=== PATIENT | male | born 1985 | race African-American/Black ===

== ENCOUNTER 2016-08-20 12:58 | Emergency (ER) | payer MEDICAID ==
[~2016-08-20] VITALS: Ht 172.7 cm; Wt 101.4 kg
[2016-08-20] MEDS ORDERED: IBUPROFEN 800 MG TABLET PO ONE (13:30)
[2016-08-20] MEDS ORDERED: CefTRIAXone SODIUM 1 GM/VIAL IM ONE (13:30)
[2016-08-20] MEDS ORDERED: LIDOCAINE HCL/PF 1% 2 ML VIAL IM ONE (13:30)
[2016-08-20 13:35] VITALS: BP 124/70
== END 2016-08-20 14:37 | disposition home or self-care (01) ==
LOC: EMS 13:02
DX: K04.7 Periapical abscess without sinus (principal); K02.9 Dental caries, unspecified
CPT/HCPCS: 96372; 99283; J0696; J3490

== ENCOUNTER 2016-09-03 14:03 | Emergency (ER) | payer MEDICAID ==
[~2016-09-03] VITALS: Ht 172.7 cm; Wt 97.3 kg
[2016-09-03 14:05] VITALS: BP 117/72
== END 2016-09-03 14:20 | disposition left against medical advice (07) ==
LOC: EMS 14:04
DX: K08.89 Other specified disorders of teeth and supporting structures (principal); Z53.21 Procedure and treatment not carried out due to patient leaving prior to being seen by health care provider

== ENCOUNTER 2016-09-10 15:44 | Emergency (ER) | payer MEDICAID, OTHER ==
[~2016-09-10] VITALS: Ht 172.7 cm; Wt 96.8 kg
[2016-09-10] MEDS ORDERED: IBUP-1547 PO (15:49)
[2016-09-10] MEDS ORDERED: AMOX250C4 PO (15:49)
[2016-09-10] MEDS ORDERED: IBUPROFEN 600 MG TABLET PO ONE (16:15)
[2016-09-10] MEDS ORDERED: HydrOXYzine PAMOATE 50 MG CAPSULE PO ONE (16:15)
[2016-09-10 16:32] LABS: BASOPHILS % (AUTO) 0.5 % (0.0-2.0); HEMATOCRIT 46.3 % (41-53); HEMOGLOBIN 14.7 g/dL (13.5-17.5); LYMPHOCYTES % (AUTO) 33.1 % (22.0-44.0); MEAN CORPUSCULAR HEMOGLOBIN 28.3 pg (26.0-34.0); MEAN CORPUSCULAR HGB CONC 31.7 G/dL (31.0-37.0); MEAN CORPUSCULAR VOLUME 89 fL (80-100); MONOCYTES # (AUTO) 0.8 K/uL (0.1-1.0); MONOCYTES % (AUTO) 12.8 % (2.0-9.0); NEUTROPHILS # (AUTO) 3.2 K/uL (1.8-7.7); NEUTROPHILS % (AUTO) 52.6 % (40.0-70.0); PLATELET COUNT (AUTO) 244 K/uL (150-450); RED BLOOD CELL COUNT(AUTO) 5.19 MIL/uL (4.50-5.90); RED CELL DISTRIBUTION WIDTH 13.6 % (11.5-14.5); WHITE BLOOD COUNT (AUTO) 6.2 K/uL (4.5-11.0)
[2016-09-10 16:48] LABS: ANION GAP 8 mmol/L (8-16); CARBON DIOXIDE 26 mmol/L (22-29); CHLORIDE 104 mmol/L (98-107); GLOMERULAR FILTR. RATE CALC > 60 mL/min (>60); POTASSIUM 4.4 mmol/L (3.5-5.1); SODIUM SERUM 138 mmol/L (136-145); UREA NITROGEN, BLOOD 17 mg/dL (7-18)
[2016-09-10 17:08] LABS: B-TYPE NATRIURETIC PEPTIDE 12 pg/mL (0-100)
[2016-09-10 17:14] LABS: ALANINE AMINOTRANSFERASE 42 U/L (12-78); ASPARTATE AMINOTRANSFERASE 22 U/L (15-37); BILIRUBIN,TOTAL 0.2 mg/dL (0.1-1.0); CREATINE KINASE MB 1.3 ng/mL (0-5); CREATINE KINASE, TOTAL 331 U/L (39-308); TOTAL PROTEIN, SERUM 7.6 g/dL (6.4-8.2)
[2016-09-10 17:32] LABS: APPEARANCE,URINE CLEAR (CLEAR); GLUCOSE, URINE (UA) NEGATIVE (NEGATIVE); KETONES,URINE NEGATIVE (NEGATIVE); LEUKOCYTE ESTERASE ,URINE NEGATIVE (NEGATIVE); OCCULT BLOOD,URINE NEGATIVE (NEGATIVE); PH,URINE 5.5 (5.0-8.0); PROTEIN,URINE NEGATIVE (NEGATIVE)
[2016-09-10 17:33] LABS: ADD UA MICROSCOPIC NO
[2016-09-10 18:15] VITALS: BP 126/94
== END 2016-09-10 18:49 | disposition home or self-care (01) ==
LOC: EMS 15:46
DX: R07.89 Other chest pain (principal); F17.210 Nicotine dependence, cigarettes, uncomplicated
CPT/HCPCS: 85379; 93005; 99285